=== PATIENT | female | born 1985 | race Caucasian/White ===

== ENCOUNTER → 2018-10-20 | Outpatient (CLI) | payer OTHER ==
[~2018-10-20] MED LIST: FERR325T3 PO; IBUP600T26 PO; IBUP80TA PO; NORCOTAB PO; PERCOCET PO; PRENTAB74 PO; PROBCAP4 PO
[2018-10-20 18:26] LABS: FREE T4 1.06 NG/DL (0.76-1.46); PROLACTIN 5.2 NG/ML; THYROID STIMULATING HORMONE 0.541 uIU/ML (0.358-3.740)
[2018-10-20 18:39] LABS: HEMOGLOBIN 13.5 g/dl (12.0-15.5); MEAN CORPUSCULAR HEMOGLOBIN 28.4 pg (27.0-33.0); MEAN CORPUSCULAR HGB CONC 32.9 g/dl (32.0-36.5); MEAN CORPUSCULAR VOLUME 86.3 fl (80.0-96.0); PLATELET COUNT, AUTOMATED 234 10^3/uL (150-450); RED BLOOD COUNT 4.75 10^6/uL (4.00-5.40); WHITE BLOOD COUNT 9.3 10^3/uL (4.0-10.0)
== END ==
LOC: M SMT 13:03
PROVIDERS: ATTEND Obstetrics & Gynecology
DX: N92.6 Irregular menstruation, unspecified (principal)

== ENCOUNTER → 2018-10-23 | Outpatient (CLI) | payer OTHER ==
--- NOTE | 2018-10-23 11:25 | REP ---
Pelvic sonography: History: Irregular menstruation. Findings: Transabdominal and transvaginal scanning are included. Uterine dimensions are normal at 10.4 x 3.3 x 6.0 cm. Endometrial echo is 1.1 cm thick and centrally placed. No free fluid is seen. Visualized bladder eller are smooth. Normal ovaries are seen bilaterally. The right ovary measures 2.8 x 2.1 x 2.5 cm. Left ovarian dimensions are 2.5 x 1.5 x 1.7 cm. Doppler flow is normal to both ovaries. Resistive indices are 0.54 on the right and 0.56 on the left. Impression: Normal pelvic sonography. Electronically Signed by Bala Rahman MD 10/23/2018 03:41 P
== END ==
LOC: M RAD 08:10
PROVIDERS: ATTEND Obstetrics & Gynecology
DX: N92.6 Irregular menstruation, unspecified (principal)

== ENCOUNTER 2018-11-10 09:00 | Day surgery (SDC) | payer OTHER ==
[~2018-11-10] VITALS: Ht 152.4 cm; Wt 74.8 kg
[~2018-11-10 09:00] MED LIST changes: +CVS1CAP2 PO; +LIDOCAINE 1% MDV 20ML VIAL SQ PRN; +LR 1,000 ML IV ONE; +MICR1TAB18 PO
[2018-11-10 09:38] LABS: URINE PREG TEST NEGATIVE (NEGATIVE)
[2018-11-10 09:41] LABS: HEMATOCRIT 40.1 % (36.0-47.0); HEMOGLOBIN 13.5 g/dl (12.0-15.5); MEAN CORPUSCULAR HEMOGLOBIN 28.7 pg (27.0-33.0); MEAN CORPUSCULAR HGB CONC 33.7 g/dl (32.0-36.5); MEAN CORPUSCULAR VOLUME 85.3 fl (80.0-96.0); PLATELET COUNT, AUTOMATED 217 10^3/uL (150-450); WHITE BLOOD COUNT 6.8 10^3/uL (4.0-10.0)
[2018-11-10] MEDS ORDERED: LIDOCAINE 2% INJ 100 MG/5 ML SDV (FOR ANES.) As Ordered ONE (09:58)
[2018-11-10] MEDS ORDERED: PROPOFOL 200 MG/20 ML VIAL As Ordered ONE (09:58)
[2018-11-10] MEDS ORDERED: dexameTHASONE 4 MG/ML 1ML VIAL (J1100) As Ordered ONE (09:58)
[2018-11-10] MEDS ORDERED: ONDANSETRON 4MG/2ML VIAL (J2405) As Ordered ONE (09:58)
[2018-11-10] MEDS ORDERED: fentaNYL 100 MCG/2 ML INJECTION (J3010) As Ordered ONE (09:59)
[2018-11-10] MEDS ORDERED: MIDAZOLAM INJ 2 MG/2 ML VIAL (J2250) As Ordered ONE (09:59)
[2018-11-10] MEDS ORDERED: IBUP80TA PO (10:43)
[2018-11-10] MEDS ORDERED: ACETAMINOPHEN 1000MG 100ML IV BTL (OFIRMEV) (J0131 PER 10MG) As Ordered ONE (11:12)
[2018-11-10] MEDS ORDERED: KETOROLAC 60 MG/2 ML VIAL (J1885) As Ordered ONE (11:23)
--- NOTE | 2018-11-10 11:44 | RO ---
DATE OF PROCEDURE: 11/10/2018 Roseanna is a 33-year-old female with extensive history of menorrhagia and an enlarged uterus. After counseling in the office a decision was made to proceed with a dilatation and curettage, hysteroscopy. PREOPERATIVE DIAGNOSIS: Enlarged uterus. POSTOPERATIVE DIAGNOSIS: Enlarged uterus. PROCEDURE: 1. Dilatation and curettage. 2. Hysteroscopy. SURGEON: Rashi Rojas DO INSET CUTTER: ANESTHESIA General. COMPLICATIONS: None. ESTIMATED BLOOD LOSS: Less than 20 mL. SPECIMEN SENT TO THE LAB: Endometrial curettings. PROCEDURE: After obtaining informed consent, and visiting with the patient in the preop area, she was then taken to the operating room where general anesthetic was found to be adequate. She was then draped and prepped in usual sterile fashion in dorsal lithotomy position. At this point, a straight cath of the bladder was performed for proximately 150 mL of clear urine. A retained tampon was found in the vagina. This was then removed and the cervix reprepped with Betadine. At this point for the cervix was held in tension with a single-tooth tenaculum. The uterus was sound to approximately 9 cm in size. The cervix was serially dilated. The hysteroscope was inserted and the endometrial cavity was then inspected. Bilateral tubal ostia visualized. No evidence of any polyp or fibroid noted. At this point, the hysteroscope was removed and a sharp curettage of the endometrial lining was done and the tissues were sent to pathology for final diagnosis. Good hemostasis noted. All instruments removed. The patient tolerated procedure well. She was then transferred to recovery room in stable condition.
[2018-11-10] MEDS ORDERED: PERCOCET 5MG/325MG TAB PO PRN ×2 (12:00)
[2018-11-10] MEDS ORDERED: fentaNYL 100 MCG/2 ML INJECTION (J3010) IV PRN (12:00)
[2018-11-10] MEDS ORDERED: LR 1,000 ML IV SCH (12:00)
[2018-11-10] MEDS ORDERED: METOCLOPRAMIDE INJ 10MG/2ML VIAL (J2765) IV PRN (12:00)
[2018-11-10] MEDS ORDERED: ONDANSETRON 4MG/2ML VIAL (J2405) IV PRN (12:00)
[2018-11-10 14:00] VITALS: BP 161/96
[2018-11-10] MEDS ORDERED: IBUPROFEN 800 MG TAB PO SCH (18:00)
== END 2018-11-10 14:00 | disposition home or self-care (01) ==
LOC: M SDC 09:00
PROVIDERS: ATTEND Obstetrics & Gynecology
DX: N92.0 Excessive and frequent menstruation with regular cycle (principal); N85.2 Hypertrophy of uterus
CPT/HCPCS: 36415; 58558; 84703; 85027; 86850; 86900; 86901; 87086; 88305; J0131; J1100; J1885; J2250; J2405; J3010

== ENCOUNTER 2019-01-29 13:13 | Inpatient (IN) | payer OTHER ==
[~2019-01-29] VITALS: Ht 152.4 cm; Wt 74.9 kg
[~2019-01-29 13:13] MED LIST changes: -LIDOCAINE 1% MDV 20ML VIAL SQ PRN; -LR 1,000 ML IV ONE
[2019-01-29] MEDS ORDERED: PROBIOTIC (13:19)
[2019-01-29 13:59] LABS: BASO % 0.6 % (0.0-1.0); EOS # 0.1 10^3/uL (0.0-0.5); EOS % 1.9 % (0.0-3.0); HEMOGLOBIN 13.3 g/dl (12.0-15.5); LYMPH # 1.8 10^3/uL (1.5-5.0); LYMPH % 28.3 % (24.0-44.0); MEAN CORPUSCULAR HEMOGLOBIN 26.8 pg (27.0-33.0); MEAN CORPUSCULAR HGB CONC 33.3 g/dl (32.0-36.5); MEAN CORPUSCULAR VOLUME 80.5 fl (80.0-96.0); MONO # 0.4 10^3/uL (0.0-0.8); MONO % 6.8 % (0.0-5.0); NEUTROPHILS % 62.2 % (36.0-66.0); PLATELET COUNT, AUTOMATED 238 10^3/uL (150-450); RED BLOOD COUNT 4.97 10^6/uL (4.00-5.40); WHITE BLOOD COUNT 6.4 10^3/uL (4.0-10.0)
--- NOTE | 2019-01-29 14:15 | REP ---
CHEST, SINGLE VIEW: There is no evidence of acute infiltrate. No pleural effusion is seen. The heart is normal in size. The mediastinal silhouette is unremarkable. The visualized osseous structures are intact. IMPRESSION: No acute pulmonary disease. Electronically Signed by Catrachito Helms MD 01/29/2019 04:22 P
[2019-01-29 14:21] LABS: BLOOD UREA NITROGEN 7 MG/DL (7-18); CALCIUM LEVEL 9.7 MG/DL (8.5-10.1); CARBON DIOXIDE LEVEL 24 MEQ/L (21-32); CHLORIDE LEVEL 105 MEQ/L (98-107); CK-MB VALUE MASS < 1.0 NG/ML (<3.6); CPK CREATINE PHOSPHOKINASE 219 U/L (26-192); GLOMERULAR FILTRATION RATE > 60.0 (>60); GLUCOSE, FASTING 90 MG/DL (70-100); MB/CK RELATIVE INDEX 0.46 (< OR =4); POTASSIUM SERUM 3.9 MEQ/L (3.5-5.1); SODIUM LEVEL 139 MEQ/L (136-145); TROPONIN I < 0.02 NG/ML (< 0.10)
[2019-01-29] MEDS ORDERED: ISOVUE-370 76% 100ML VIAL (Q9967) As Ordered ONE (15:25)
[2019-01-29 16:53] LABS: ALBUMIN 4.2 GM/DL (3.2-5.2); ALT/SGPT 16 U/L (12-78); BILIRUBIN,DIRECT 0.3 MG/DL (0.0-0.2); BILIRUBIN,TOTAL 1.3 MG/DL (0.2-1.0); TOTAL PROTEIN 7.6 GM/DL (6.4-8.2)
--- NOTE | 2019-01-29 16:57 | REP ---
CT ANGIOGRAM CHEST: TECHNIQUE: Axial contrast enhanced images from the thoracic inlet to the upper abdomen using 100 mL Isovue 370 intravenous contrast material with multiplanar reformations. There is no CT evidence of pulmonary embolism. There is no thoracic aortic aneurysm or dissection. The heart is normal in size. There is no pleural or pericardial effusion. There is no mediastinal, hilar or chest wall lymphadenopathy. Calcified granuloma is seen in the right upper lobe. No infiltrate is seen in either lung. IMPRESSION: No CT evidence of pulmonary embolism or aortic dissection. Electronically Signed by Catrachito Helms MD 01/31/2019 09:30 A
[2019-01-29] MEDS ORDERED: hydrALAZINE INJ 20 MG/ML VIAL IV ONE (17:00)
[2019-01-29] MEDS ORDERED: LABETALOL HCL 100 MG/20 ML VIAL IV STA (17:49)
[2019-01-29 18:34] LABS: CK-MB VALUE MASS < 1.0 NG/ML (<3.6); CPK CREATINE PHOSPHOKINASE 171 U/L (26-192); MB/CK RELATIVE INDEX 0.58 (< OR =4); THYROID STIMULATING HORMONE 0.867 uIU/ML (0.358-3.740); TROPONIN I < 0.02 NG/ML (< 0.10)
[2019-01-29] MEDS ORDERED: LABETALOL 100 MG TAB PO ONE (19:00)
[2019-01-29 19:34] LABS: APPEARANCE, URINE CLEAR (CLEAR); BACTERIA, URINE AUTO NEGATIVE (NEGATIVE); BILIRUBIN, URINE AUTO NEGATIVE (NEGATIVE); BLOOD, URINE BLOOD NEGATIVE (NEGATIVE); COLOR, URINE STRAW (YELLOW); GLUCOSE, URINE (UA) AUTO NEGATIVE (NEGATIVE); KETONE, URINE AUTO NEGATIVE (NEGATIVE); LEUKOCYTE ESTERASE, URINE AUTO NEGATIVE (NEGATIVE); NITRITE, URINE AUTO NEGATIVE (NEGATIVE); PROTEIN, URINE AUTO NEGATIVE (NEGATIVE); RBC, URINE AUTO 0 /HPF (0-3); SPECIFIC GRAVITY URINE AUTO 1.032 (1.002-1.035); SQUAMOUS EPITHELIAL CELL UR AU 1 /HPF (0-6); UROBILINOGEN, URINE AUTO 0.2 mg/dL (0.0-2.0); WBC, URINE AUTO 0 /HPF (0-3)
[2019-01-29] MEDS ORDERED: LOSARTAN 50 MG TAB PO ONE (19:45)
[2019-01-29] MEDS ORDERED: KETOROLAC 30 MG/ML VIAL (J1885) IV ONE (19:45)
[2019-01-29] MEDS ORDERED: CVS1CAP2 PO (22:37)
[2019-01-29 22:47] LABS: NT-PRO BNP 31 PG/ML (<125)
--- NOTE | 2019-01-29 23:11 | HPEPDOC ---
General Date of Admission Jan 29, 2019 at 13:14 Date of Service: Jan 29, 2019 Attending Physician: ESTRELLA PACK DO Chief Complaint The patient is a 33-year-old female admitted with a reason for visit of Hypertensive Urgency. Source: Patient Exam Limitations: No limitations Timing/Duration: Day(s) Severity: Moderate Associated Symptoms: Headaches, Other (hypertensive urgency) History of Present Illness Patient is 33 years old female without significant past medical history presented to the hospital with severe headache and hypertensive urgency. Patient stated that she was found to have elevated blood pressure around 150/90 in October and since that time she monitored daily her blood pressure. Most of the time her systolic blood pressure was around 140-150. Patient does not have a PCP and she didn't take any medications for blood pressure. For past few days patient started to have severe headache, intermittent. Her blood pressure was around 200/110. In Emergency room patient received hydralazine IV, labetalol IV, her blood pressure became around 150/90. Patient denied fever, chills, nausea, vomiting, shortness of breath, diarrhea or dysuria Home Medications Scheduled Lactobacillus Combo No.10 (Probiotic) 1 Each Capsule, 1 CAP PO QHS, (Reported) Allergies Coded Allergies: No Known Allergies (Unverified , 11/10/18) Past Medical History Medical History No significant past medical history Surgical History Dilatation curettage was done in October due to excessive bleeding Family History Father has coronary artery diseases Social History * Smoker: Denies Alcohol: Denies Drugs: denies A-FIB/CHADSVASC A-FIB History Current/History of A-Fib/PAF?: No Current PO Anticoag Therapy: No Review of Systems Constitutional: Denies: Chills, Fever Eyes: Denies: Pain, Vision change ENT: Reports: Head Aches; Denies: Dysphagia Skin: Denies: Rash, Lesions Pulmonary: Denies: Dyspnea, Cough Cardiovascular: Denies: Chest Pain, Orthopnea Gastrointestinal: Denies: Nausea, Vomiting Genitourinary: Denies: Dysuria, Frequency Hematologic: Denies: Bruising, Bleeding Excessively Endocrine: Denies: Polydipsia, Polyphagia Musculoskeletal: Denies: Neck Pain, Back Pain Neurological: Denies: Weakness, Numbness Psych: Reports: Mood Normal Physical Examination General Exam: Positive: Alert, Cooperative Eye Exam: Positive: PERRLA, Conjunctiva & lids normal ENT Exam: Positive: Atraumatic Neck Exam: Positive: Supple; Negative: JVD Chest Exam: Positive: Clear to auscultation Heart Exam: Positive: Rate Normal, Regular Rhythm Telemetry: Positive: No significant arrhythmia Abdomen Exam: Positive: Normal bowel sounds Extremity Exam: Negative: Clubbing Skin Exam: Negative: Nl turgor and temperature Neuro Exam: Positive: Strength at 5/5 X4 ext, Cranial Nerves 3-12 NL Psych Exam: Positive: Mental status NL Vital Signs Vital Signs Date Time Temp Pulse Resp B/P (MAP) Pulse Ox O2 Delivery O2 Flow Rate FiO2 01/29/19 22:15 90 153/104 (120) 97 01/29/19 19:00 18 Room Air 01/29/19 13:13 98.7 Laboratory Data Labs 24H Laboratory Tests 2 01/29/19 13:34: Immature Granulocyte % (Auto) 0.2, White Blood Count 6.4, Red Blood Count 4.97, Hemoglobin 13.3, Hematocrit 40.0, Mean Corpuscular Volume 80.5, Mean Corpuscular Hemoglobin 26.8L, Mean Corpuscular Hemoglobin Concent 33.3, Red Cell Distribution Width 12.6, Platelet Count 238, Neutrophils (%) (Auto) 62.2, Lymphocytes (%) (Auto) 28.3, Monocytes (%) (Auto) 6.8H, Eosinophils (%) (Auto) 1.9, Basophils (%) (Auto) 0.6, Neutrophils # (Auto) 4.0, Lymphocytes # (Auto) 1.8, Monocytes # (Auto) 0.4, Eosinophils # (Auto) 0.1, Basophils # (Auto) 0.0, Nucleated Red Blood Cells % (auto) 0.0, Anion Gap 10, Glomerular Filtration Rate > 60.0, Calcium Level 9.7, Aspartate Amino Transf (AST/SGOT) 17, Alanine Doherty otransferase (ALT/SGPT) 16, Alkaline Phosphatase 76, Total Bilirubin 1.3H, Direct Bilirubin 0.3H, Total Creatine Kinase 219H, Creatine Kinase MB < 1.0, Creatine Kinase MB Relative Index 0.46, Troponin I < 0.02, Total Protein 7.6, Albumin 4.2, Albumin/Globulin Ratio 1.24 01/29/19 14:23: POC Beta HCG, Quantitative < 5.0 01/29/19 17:54: Total Creatine Kinase 171, Creatine Kinase MB < 1.0, Creatine Kinase MB Relative Index 0.58, Troponin I < 0.02, HP-Dgr-N-Type Natriuretic Peptide 31, Thyroid Stimulating Hormone (TSH) 0.867 01/29/19 19:21: Urine Appearance CLEAR, Urine Color STRAW, Urine pH 9.0, Urine Specific [place] 1.032, Urine Protein NEGATIVE, Urine Glucose (UA) NEGATIVE, Urine Ketones NEGATIVE, Urine Urobilinogen 0.2, Urine Bilirubin NEGATIVE, Urine Leukocyte Esterase NEGATIVE, Urine Blood NEGATIVE, Urine Nitrite NEGATIVE, Urine WBC (Auto) 0, Urine RBC (Auto) 0, Urine Hyaline Casts (Auto) 0, Urine Bacteria (Auto) NEGATIVE, Urine Squamous Epithelial Cells 1, Urine Sperm (Auto) 01/29/19 22:56: CBC/BMP Laboratory Tests 01/29/19 13:34 Red Blood Count 4.97, Mean Corpuscular Volume 80.5, Mean Corpuscular Hemoglobin 26.8 L, Mean Corpuscular Hemoglobin Concent 33.3, Red Cell Distribution Width 12.6, Neutrophils (%) (Auto) 62.2, Lymphocytes (%) (Auto) 28.3, Monocytes (%) (Auto) 6.8 H, Eosinophils (%) (Auto) 1.9, Basophils (%) (Auto) 0.6, Neutrophils # (Auto) 4.0, Lymphocytes # (Auto) 1.8, Monocytes # (Auto) 0.4, Eosinophils # (Auto) 0.1, Basophils # (Auto) 0.0 Assessment/Plan Patient is 33 years old female without significant past medical history presented to ED with severe headache and hypertensive urgency. Problems (1) Hypertensive urgency Status: Acute Problem Text: Dr. Hummel talked to Dr. Kahn recommended losartan and chlorthalidone by mouth We will check routine and aldosterone Ultrasound of the kidney, Doppler ultrasound of renal arteries Echo Appreciate/agree with veteran appeals reviewer recommendation We will keep systolic blood pressure in the range 160 for the next 6-8 hours Labetalol when necessary (2) Headache Problem Text: Secondary to hypertensive urgency Tramadol when necessary Plan / VTE VTE Prophylaxis Ordered?: Yes ESTRELLA PACK DO Jan 29, 2019 23:11
[2019-01-29] MEDS ORDERED: LABETALOL HCL 100 MG/20 ML VIAL IV PRN (23:15)
[2019-01-29] MEDS: traMADol 50 MG TAB PO PRN (23:44)
[2019-01-30] VITALS (10 sets, daily range): BP systolic 117–163; BP diastolic 76–107; PULSE 76
[2019-01-30] MEDS ORDERED: MORPHINE 4 MG/ML 1ML VIAL/SYRINGE (J2270) IV ONE (03:00)
--- NOTE | 2019-01-30 04:58 | ECGEPIP ---
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
--- NOTE | 2019-01-30 05:02 | ECGEPIP ---
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
[2019-01-30] MEDS: HEPARIN SOD (PORCINE) 5000 UNITS/ML VIAL SQ SCH ×2 (05:31→17:27)
[2019-01-30 05:41] LABS: BASO # 0.1 10^3/uL (0.0-0.2); EOS # 0.2 10^3/uL (0.0-0.5); HEMATOCRIT 38.6 % (36.0-47.0); HEMOGLOBIN 12.6 g/dl (12.0-15.5); LYMPH # 1.9 10^3/uL (1.5-5.0); LYMPH % 32.1 % (24.0-44.0); MEAN CORPUSCULAR HEMOGLOBIN 27.2 pg (27.0-33.0); MEAN CORPUSCULAR HGB CONC 32.6 g/dl (32.0-36.5); MEAN CORPUSCULAR VOLUME 83.4 fl (80.0-96.0); MONO # 0.6 10^3/uL (0.0-0.8); MONO % 9.1 % (0.0-5.0); NEUTROPHILS # 3.3 10^3/uL (1.5-8.5); NEUTROPHILS % 54.6 % (36.0-66.0); PLATELET COUNT, AUTOMATED 225 10^3/uL (150-450); RED BLOOD COUNT 4.63 10^6/uL (4.00-5.40)
[2019-01-30 06:02] LABS: BLOOD UREA NITROGEN 10 MG/DL (7-18); CARBON DIOXIDE LEVEL 24 MEQ/L (21-32); CHLORIDE LEVEL 108 MEQ/L (98-107); CREATININE FOR GFR 0.98 MG/DL (0.55-1.30); GLOMERULAR FILTRATION RATE > 60.0 (>60); GLUCOSE, FASTING 104 MG/DL (70-100); MAGNESIUM LEVEL 2.1 MG/DL (1.8-2.4); PHOSPHORUS LEVEL 4.9 MG/DL (2.5-4.9); POTASSIUM SERUM 3.4 MEQ/L (3.5-5.1); SODIUM LEVEL 141 MEQ/L (136-145)
[2019-01-30] MEDS ORDERED: POTASSIUM CHLORIDE 10 MEQ SR TABLET PO ONE (07:45)
[2019-01-30] MEDS: CHLORTHALIDONE 12.5MG PER 1/2 TABLET PO SCH (08:18)
[2019-01-30] MEDS: LOSARTAN 50 MG TAB PO SCH (08:18)
[2019-01-30] MEDS: ACETAMINOPHEN TAB 650MG DOSE (2X325MG) PO PRN ×3 (10:11→23:08)
[2019-01-30] MEDS ORDERED: NS 500 ML IV ONE (10:30)
[2019-01-30] MEDS: NS 1,000 ML IV SCH ×2 (10:52)
[2019-01-30] MEDS ORDERED: ISOVUE-370 76% 100ML VIAL (Q9967) As Ordered ONE (11:12)
--- NOTE | 2019-01-30 12:18 | REPVR ---
EXAM: CT Head Without Contrast EXAM DATE/TIME: 01/30/2019 11:38 AM CLINICAL HISTORY: 33 years old, female; Other: Hypertensive emergency; Additional info: R/O bleed TECHNIQUE: Imaging protocol: Computed tomography of the head without contrast. Radiation optimization: All CT scans at this facility use at least one of these dose optimization techniques: automated exposure control; mA and/or kV adjustment per patient size (includes targeted exams where dose is matched to clinical indication); or iterative reconstruction. COMPARISON: No relevant prior studies available. FINDINGS: Brain: Symmetric caliber of the cortical sulci. Normal pitt-white matter differentiation. No acute cortical infarct, mass effect, or intracranial hemorrhage. Dural calcification. Ventricles: Normal configuration of the ventricles. Bones/joints: No acute calvarial pathology. Sinuses: No sinus fluid. Mastoid air cells: No mastoid effusion. Soft tissues: Unremarkable soft tissues. IMPRESSION: No acute intracranial pathology. Electronically signed by: Myles Bull On 01/30/2019 12:17:59 PM
--- NOTE | 2019-01-30 12:36 | REPVR ---
EXAM: CT Angiography Neck With Contrast EXAM DATE/TIME: 01/30/2019 11:38 AM CLINICAL HISTORY: 33 years old, female; Other: Hypertensive emeregency; Patient HX: R/O dissection; Additional info: Assess for carotid/vascular dissection TECHNIQUE: Imaging protocol: Computed tomographic angiography images of the neck with intravenous contrast using CT angiography protocol. 3D rendering: MIP reconstructed images were created and reviewed. Radiation optimization: All CT scans at this facility use at least one of these dose optimization techniques: automated exposure control; mA and/or kV adjustment per patient size (includes targeted exams where dose is matched to clinical indication); or iterative reconstruction. Contrast material: ISOVUE 370; Contrast volume: 75 ml; Contrast route: IV; COMPARISON: No relevant prior studies available. FINDINGS: VASCULATURE: Right common carotid artery: Unremarkable. No stenosis. No dissection or occlusion. Right internal carotid artery: Unremarkable extracranial segment. No stenosis. No dissection or occlusion. Right external carotid artery: Unremarkable. No occlusion or stenosis of the origin. Right vertebral artery: Unremarkable. No stenosis. No dissection or occlusion. Left common carotid artery: There is a bovine aortic arch, with a common origin of the left common carotid and brachiocephalic arteries. Left internal carotid artery: Unremarkable extracranial segment. No stenosis. No dissection or occlusion. Left external carotid artery: Unremarkable. No occlusion or stenosis of the origin. Left vertebral artery: Unremarkable. No stenosis. No dissection or occlusion. NECK: Thyroid: The thyroid gland is normal. Bones/joints: No acute fracture. Soft tissues: Normal. No significant soft tissue swelling. Lymph nodes: There are numerous prominent but non-pathologic lymph nodes in the neck. There are no nodes of pathologic dimensions. Lungs: The visualized portions of the lung apices are normal. Dental: Moderate dental disease is seen. Other findings: There is no evidence of dissection, leak, rupture, or other complications. IMPRESSION: There is no evidence of dissection, leak, rupture, or other complications. COMMENT: Reference per NASCET criteria for degree of stenosis: Mild: less than 50% stenosis. Moderate: 50-69% stenosis. Severe: 70-94% stenosis. Near occlusion: 95-99% stenosis. Electronically signed by: Shawn Green On 01/30/2019 12:36:30 PM
[2019-01-30] MEDS: traMADol 50 MG TAB PO PRN (13:58)
[2019-01-30] MEDS ORDERED: SUMAtriptan SUCCINATE 25 MG TAB PO ONE (19:15)
--- NOTE | 2019-01-30 19:25 | IPNPDOC ---
Date Seen The patient was seen on 01/30/19. Progress Note SUBJECTIVE: Patient continues to complain of headache along with some neck discomfort. Overall reportedly improved from yesterday but not resolved. CT head and neck angio showed no evidence of intracranial hemorrhage nor carotid dissection. Had been on tramadol, tylenol also added, some relief but headache persistent. OBJECTIVE PHYSICAL EXAMINATION: VITAL SIGNS: Please see below. General: mild distress, Alert Eyes: Normal sclera, EOMI, SUSANNE HENT: Atraumatic Cardiovascular: Normal rate, normal rhythm. Pulmonary: Clear to auscultation b/l, no wheezing GI: Soft, nontender, nondistended Skin: Warm and dry Neuro: CN grossly intact. No focal deficits. Strengths equal b/l. Psych: oriented x 3 LABORATORY DATA, IMAGING STUDIES, MICROBIOLOGY: Please see below. DVT prophylaxis ordered?: HSQ ASSESSMENT AND PLAN: 1. Hypertensive urgency - BP improved, c/w current regimen. - Troponins negative. - BP 120-140s systolic currently. - On chlorthalidone 12.5 mg daily and losartan 50 mg daily. - f/u Renal US. f/u Renin aldosterone. 2. Headache - New onset headache. no history of migraine. - Suspected from HTN, or rapid drop of BP from chronic baseline. - Keep BP slightly elevated around 140s now, will not aggressively lower at this time. - Was on tylenol and tramadol without adequate relief. Tramadol d/c and trying a dose of Sumtriptan now. - Suspected possible tension headache given complaints of neck discomfort as well. - CT showed no evidence of intracranial bleed. CTA showed no carotid dissection. DISPOSITION: Home once headache improves/resolves. VS, I&O, 24H, [facility] Vital Signs/I&O Vital Signs Date Time Temp Pulse Resp B/P (MAP) Pulse Ox O2 Delivery O2 Flow Rate FiO2 01/30/19 16:00 97.4 80 18 141/99 (113) 100 01/29/19 19:00 Room Air I&O- Last 24 Hours up to 6 AM 01/30/19 06:00 Intake Total 0 ml Output Total 700 ml Balance -700 ml Laboratory Data 24H LABS Laboratory Tests 2 01/29/19 19:21: Urine Appearance CLEAR, Urine Color STRAW, Urine pH 9.0, Urine Specific [place] 1.032, Urine Protein NEGATIVE, Urine Glucose (UA) NEGATIVE, Urine Ketones NEGATIVE, Urine Urobilinogen 0.2, Urine Bilirubin NEGATIVE, Urine Leukocyte Esterase NEGATIVE, Urine Blood NEGATIVE, Urine Nitrite NEGATIVE, Urine WBC (Auto) 0, Urine RBC (Auto) 0, Urine Hyaline Casts (Auto) 0, Urine Bacteria (Auto) NEGATIVE, Urine Squamous Epithelial Cells 1, Urine Sperm (Auto) 01/29/19 22:56: 01/30/19 04:58: Immature Granulocyte % (Auto) 0.2, White Blood Count 6.0, Red Blood Count 4.63, Hemoglobin 12.6, Hematocrit 38.6, Mean Corpuscular Volume 83.4, Mean Corpuscular Hemoglobin 27.2, Mean Corpuscular Hemoglobin Concent 32.6, Red Cell Distribution Width 12.7, Platelet Count 225, Neutrophils (%) (Auto) 54.6, Lymphocytes (%) (Auto) 32.1, Monocytes (%) (Auto) 9.1H, Eosinophils (%) (Auto) 3.0, Basophils (%) (Auto) 1.0, Neutrophils # (Auto) 3.3, Lymphocytes # (Auto) 1.9, Monocytes # (Auto) 0.6, Eosinophils # (Auto) 0.2, Basophils # (Auto) 0.1, Nucleated Red Blood Cells % (auto) 0.0, Anion Gap 9, Glomerular Filtration Rate > 60.0, Blood Urea Nitrogen 10, Creatinine 0.98, Sodium Level 141, Potassium Level 3.4L, Chloride Level 108H, Carbon Dioxide Level 24, Calcium Level 9.0, Phosphorus Level 4.9, Magnesium Level 2.1 CBC/BMP Laboratory Tests 01/30/19 04:58 Red Blood Count 4.63, Mean Corpuscular Volume 83.4, Mean Corpuscular Hemoglobin 27.2, Mean Corpuscular Hemoglobin Concent 32.6, Red Cell Distribution Width 12.7, Neutrophils (%) (Auto) 54.6, Lymphocytes (%) (Auto) 32.1, Monocytes (%) (Auto) 9.1 H, Eosinophils (%) (Auto) 3.0, Basophils (%) (Auto) 1.0, Neutrophils # (Auto) 3.3, Lymphocytes # (Auto) 1.9, Monocytes # (Auto) 0.6, Eosinophils # (Auto) 0.2, Basophils # (Auto) 0.1, Calcium Level 9.0 ANN PECK MD Jan 30, 2019 19:25
--- NOTE | 2019-01-30 19:41 | REP ---
RENAL ULTRASOUND WITH DUPLEX DOPPLER RENAL ARTERY EVALUATION: Real-time ultrasound evaluation of the kidneys is performed. Right kidney measures 9.8 x 5.6 x 5.4 cm and left kidney 10.4 x 5.6 x 5.3 cm. There is no hydronephrosis bilaterally. There appears to be echogenic renal pyramids suggesting medullary calcinosis. Cyst in the lower left kidney measures 1.8 cm. There are bilateral ureteral jets in the urinary bladder with Doppler color evaluation. Real-time ultrasound evaluation and duplex Doppler interrogation of the renal arteries is performed bilaterally. Peak-systolic velocity of the abdominal aorta at the level of the renal arteries is 110 cm/s. Peak systolic velocity at the origin of the main right renal artery is 101 cm/s, renal to aortic ratio is 0.92, resistive indices are measured in the upper, middle and lower thirds of the right kidney and range between 0.50 and 0.54. Acceleration times range between 0.44 and 0.64. Peak systolic velocity of the main left renal artery is 73 cm/s, renal to aortic ratio 0.66. Resistive indices left kidney range between 0.52 and 0.60. Acceleration times range between 0.054 and 0.064. 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 There is a cyst in the lower pole of the left kidney. There is no definite duplex Doppler sonographic evidence of hemodynamically significant renal artery stenosis. Electronically Signed by Catrachito Helms MD 02/01/2019 04:37 P
[2019-01-30] MEDS ORDERED: LOSARTAN 50 MG TAB PO ONE (22:15)
[2019-01-30 23:24] LABS: CK-MB VALUE MASS < 1.0 NG/ML (<3.6); CPK CREATINE PHOSPHOKINASE 70 U/L (26-192); MB/CK RELATIVE INDEX 1.43 (< OR =4); TROPONIN I < 0.02 NG/ML (< 0.10)
[2019-01-31 04:00] VITALS: BP 139/101
[2019-01-31] MEDS: NS 1,000 ML IV SCH ×3 (04:11→23:06)
[2019-01-31] MEDS: HEPARIN SOD (PORCINE) 5000 UNITS/ML VIAL SQ SCH ×2 (06:07→17:17)
[2019-01-31 08:00] VITALS: BP 148/102
[2019-01-31] MEDS: CHLORTHALIDONE 12.5MG PER 1/2 TABLET PO SCH (08:57)
[2019-01-31] MEDS: LOSARTAN 50 MG TAB PO SCH (08:58)
[2019-01-31] MEDS: ACETAMINOPHEN TAB 650MG DOSE (2X325MG) PO PRN ×3 (08:58→23:36)
[2019-01-31 12:00] VITALS: BP 156/84
[2019-01-31] MEDS: NAPROXEN 250 MG TAB PO SCH ×2 (12:05→20:49)
[2019-01-31] MEDS: PROPRANOLOL 20 MG TAB PO SCH ×2 (12:06→20:49)
--- NOTE | 2019-01-31 13:13 | REPVR ---
PROCEDURE INFORMATION: Exam: CT Cervical Spine Without Contrast EXAM DATE/TIME: 01/31/2019 11:53 AM Exam date and time: 01/31/2019 11:53 AM Clinical history: 33 years old, female; Pain; Cervicalgia; Additional info: Neck pain TECHNIQUE: Imaging protocol: Computed tomography images of the cervical spine without contrast. Radiation optimization: All CT scans at this facility use at least one of these dose optimization techniques: automated exposure control; mA and/or kV adjustment per patient size (includes targeted exams where dose is matched to clinical indication); or iterative reconstruction. COMPARISON: CT ANGIO NECK 01/30/2019 11:21 AM FINDINGS: The examination performed is mildly degraded by motion artifact. Vertebrae: No acute bone injury or malalignment. Marginal osteophytes without disc space narrowing. Discs/Spinal canal/Neural foramina: No focal disc herniation or foraminal stenosis. Note that assessment of disc, spinal cord, and nerve root pathology is limited in the absence of intrathecal contrast. Soft tissues: Unremarkable. Lungs: Unremarkable as visualized. IMPRESSION: No acute abnormality in the cervical spine. Electronically signed by: Myles Bull On 01/31/2019 13:12:58 PM
[2019-01-31 16:00] VITALS: BP 152/94
--- NOTE | 2019-01-31 18:08 | IPNPDOC ---
Date Seen The patient was seen on 01/31/19. Progress Note SUBJECTIVE: Patient stated that she may feel slightly better this morning but headache still persistent. CT neck performed showed no acute pathology. Patient reportedly did not tolerate Sumatriptan last night. NSAID added and Cozaar changed to propranolol. OBJECTIVE PHYSICAL EXAMINATION: VITAL SIGNS: Please see below. General: mild distress, Alert Eyes: Normal sclera, EOMI, SUSANNE HENT: Atraumatic Cardiovascular: Normal rate, normal rhythm. Pulmonary: Clear to auscultation b/l, no wheezing GI: Soft, nontender, nondistended Skin: Warm and dry Neuro: CN grossly intact. No focal deficits. Strengths equal b/l. Psych: oriented x 3 LABORATORY DATA, IMAGING STUDIES, MICROBIOLOGY: Please see below. DVT prophylaxis ordered?: HSQ ASSESSMENT AND PLAN: 1. Hypertensive urgency - BP improved, c/w current regimen. - Troponins negative. - BP 120-140s systolic currently. - On chlorthalidone and propranolol. - Renal US showed no evidence of HD significant stenosis. f/u Renin/aldosterone. 2. Headache - New onset headache. no history of migraine. - Lowering of BP helped but did not resolve headache. - Was on tylenol and tramadol without adequate relief. Trying NSAID now along with propranolol. - Appear to slightly improve today. - Suspected possible tension headache given complaints of neck discomfort as well. - CT showed no evidence of intracranial bleed. CTA showed no carotid dissection and cervical spinal CT showed no notable pathology. - Neurology consulted. F/u recommendations. DISPOSITION: Home once headache improves/resolves. VS, I&O, 24H, [facility] Vital Signs/I&O Vital Signs Date Time Temp Pulse Resp B/P (MAP) Pulse Ox O2 Delivery O2 Flow Rate FiO2 01/31/19 16:00 97.4 68 18 152/94 (113) 100 01/29/19 19:00 Room Air I&O- Last 24 Hours up to 6 AM 01/31/19 06:00 Intake Total 3300 ml Output Total 900 ml Balance 2400 ml Laboratory Data 24H LABS Laboratory Tests 2 01/30/19 21:50: Bedside Glucose (Misc Panel) 88 01/30/19 22:47: Total Creatine Kinase 70, Creatine Kinase MB < 1.0, Creatine Kinase MB Relative Index 1.43, Troponin I < 0.02 ANN PECK MD Jan 31, 2019 18:08
[2019-01-31 20:00] VITALS: BP 150/76
[2019-01-31] MEDS ORDERED: AMITRIPTYLINE 25 MG TAB PO SCH (21:00)
[2019-02-01] VITALS: BP 140/72
[2019-02-01 04:00] VITALS: BP 136/88
[2019-02-01] MEDS: HEPARIN SOD (PORCINE) 5000 UNITS/ML VIAL SQ SCH (05:38)
[2019-02-01 05:49] LABS: HEMATOCRIT 38.3 % (36.0-47.0); HEMOGLOBIN 12.5 g/dl (12.0-15.5); MEAN CORPUSCULAR HEMOGLOBIN 27.2 pg (27.0-33.0); MEAN CORPUSCULAR HGB CONC 32.6 g/dl (32.0-36.5); MEAN CORPUSCULAR VOLUME 83.3 fl (80.0-96.0); PLATELET COUNT, AUTOMATED 205 10^3/uL (150-450); WHITE BLOOD COUNT 5.2 10^3/uL (4.0-10.0)
--- NOTE | 2019-02-01 07:46 | CR ---
DATE OF CONSULTATION: 01/31/2019 REFERRING PHYSICIAN: Dr. Cornelius REASON FOR CONSULTATION: Headaches and hypertensive urgency. HISTORY OF PRESENT ILLNESS: Roseanna Woods is a 33-year-old woman with history of new onset hypertension and headaches. The patient has family history of hypertension. Her blood pressure was running high before she had dilation and curettage (D and C) in summer. Before and after the procedure, her blood pressure was around 167/127. Her blood pressure remained high in November and December. She developed headaches a week ago. A couple of days ago, she felt chest tightness and pain. Headaches have been occipital and they radiate to frontal head region. Yesterday when she came to the emergency department a blood pressure systolic ranged between 177- 201 and diastolic blood pressure rate between 111-131. Her headache was much severe. It was 10/10 in intensity all around her head, throbbing and shooting in character with nausea, dizziness, photophobia. She also reports 7/10, neck pain. She has been started on blood pressure medications. Her blood pressure is better but her headache continues. This morning Dr. Cornelius called me and I recommended to start beta fabricio. She has been started on propranolol 40 mg by mouth twice a day. In addition to chlorthalidone and losartan. Her blood pressure currently is running around 153/95. Her headache is mildly decreased currently. She denies any lower back pains seizures, dysphagia, dysarthria, diplopia, urinary incontinence, falls, loss of consciousness, head injuries, visual changes. PAST MEDICAL HISTORY: D and C due to excessive uterine bleeding. ALLERGIES: None. CURRENT MEDICATIONS: - Chlorthalidone 12.5 mg by mouth daily - losartan 50 mg by mouth daily - propranolol 40 mg by mouth twice a day FAMILY HISTORY: Significant for coronary artery disease. Father and grandparents with hypertension. SOCIAL HISTORY: She lives with her family. She has three children and they are 3,5, and 6 years old. REVIEW OF SYSTEMS: All systems were reviewed and found to be noncontributory except as what is mentioned in the history of present illness. In addition, she complains of insomnia for 3 years. Insomnia has been worse over the last 3 months. She gets 2-3 hours of sleep at night. PHYSICAL EXAMINATION: Temperature 97.4, pulse 68, respiratory 18, blood pressure 152/94, 100% saturation on room air. Heart is regular rate rhythm. Lungs: Clear to auscultation. Abdomen: Soft, nontender, nondistended. No pedal edema. No musculoskeletal abnormalities. No rash. No signs of meningeal irritation. No tremor or dysmetria. The patient is awake, alert, oriented to place, person and time. Normal speech comprehension and repetition. Extraocular muscles are intact. No facial weakness. Tongue and uvula are midline. 5/5 strength in all upper extremities. Deep tendon flexes are 2+ throughout. Normal sensation. Visual mitchell are full to confrontation. No nystagmus. Funduscopic examination is within normal limits. Gait is normal. DIAGNOSTIC STUDIES: CT scan of head, cervical spine and CT angiography of the neck were all unremarkable. CT scan of chest with contrast was unremarkable. CBC and metabolic profile were unremarkable except potassium was 3.4. Capital hCG and capital TSH were unremarkable. ASSESSMENT 1. Headaches induced by hypertensive urgency. 2. Insomnia. 3. Neck pain, likely related to above. 4. Migraines. PLAN 1. Continue propranolol 40 mg by mouth twice a day and its dose can be adjusted pending upon her blood pressure and heart rate. She also taking chlorthalidone and losartan for management of her hypertension. Work up is being done to rule out secondary causes of hypertension. 2. Trial of amitriptyline 25 mg by mouth nightly. 3. Topamax as contingency plan. 4. Follow with our office in 2-3 weeks after hospital discharge. BOLIVAR
[2019-02-01 08:00] VITALS: BP 115/80
[2019-02-01] MEDS: CHLORTHALIDONE 12.5MG PER 1/2 TABLET PO SCH (08:21)
[2019-02-01 08:22] VITALS: BP 115/80
[2019-02-01] MEDS: NAPROXEN 250 MG TAB PO SCH (08:22)
[2019-02-01] MEDS: LOSARTAN 50 MG TAB PO SCH (08:22)
[2019-02-01] MEDS ORDERED: PROPRANOLOL 20 MG TAB PO SCH (09:00)
[2019-02-01 12:00] VITALS: BP 141/88
[2019-02-01] MEDS: NS 1,000 ML IV SCH (12:04)
[2019-02-01] MEDS ORDERED: COZA50TA PO (12:58)
[2019-02-01] MEDS ORDERED: CHLO125TA PO (12:58)
[2019-02-01] MEDS ORDERED: PROP20TA PO (12:58)
[2019-02-01] MEDS ORDERED: AMIT25TA PO (12:58)
--- NOTE | 2019-02-01 13:06 | DS.PDOC ---
Discharge Summary General Date of Admission Jan 31, 2019 at 15:38 Date of Discharge 11/01/18 Discharge Summary PROCEDURES PERFORMED DURING STAY: [None]. ADMITTING DIAGNOSES: 1. Hypertensive urgency 2. Headache DISCHARGE DIAGNOSES: 1. Hypertensive urgency 2. Headache COMPLICATIONS/CHIEF COMPLAINT: Hypertensive Urgency. HISTORY OF PRESENT ILLNESS: "Patient is 33 years old female without significant past medical history presented to the hospital with severe headache and hypertensive urgency. Patient stated that she was found to have elevated blood pressure around 150/90 in October and since that time she monitored daily her blood pressure. Most of the time her systolic blood pressure was around 140-150. Patient does not have a PCP and she didn't take any medications for blood pressure. For past few days patient started to have severe headache, intermittent. Her blood pressure was around 200/110. In Emergency room patient received hydralazine IV, labetalol IV, her blood pressure became around 150/90. Patient denied fever, chills, nausea, vomiting, shortness of breath, diarrhea or dysuria" HOSPITAL COURSE: Patient's BP improved with treatment but headache persisted with slow improvement each day, also complained of neck pain. CT head showed no hemorrhage, CT angio neck showed no evidence of dissection, cervical CT also with no acute changes. Neurology evaluated patient and started on Amitriptyline. Patient still has headache but reported feeling much better and wants to go home. Will discharge patient to follow up with PMD and neurology. BP medications are new to patient, has improved but advised to continue monitoring at home and with PMD, make adjustment as needed. DISCHARGE MEDICATIONS: Please see below. ALLERGIES: Please see below. PHYSICAL EXAMINATION ON DISCHARGE: VITAL SIGNS: Please see below. General: Mild distress, Alert Eyes: Normal sclera, EOMI, SUSANNE HENT: Atraumatic, neck supple, moist mucous membranes Cardiovascular: Normal rate, normal rhythm. Pulmonary: Clear to auscultation b/l, no wheezing GI: Soft, nontender, nondistended Skin: Warm and dry Neuro: CN grossly intact. No focal deficits. Strengths equal b/l. Psych: oriented x 3 LABORATORY DATA: Please see below. IMAGING: CT head- IMPRESSION: No acute intracranial pathology. Neck CTA- IMPRESSION: There is no evidence of dissection, leak, rupture, or other complications. CT cervical spine- IMPRESSION: No acute abnormality in the cervical spine. 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 There is a cyst in the lower pole of the left kidney. There is no definite duplex Doppler sonographic evidence of hemodynamically significant renal artery stenosis. CT angio chest- IMPRESSION: No CT evidence of pulmonary embolism or aortic dissection. ACTIVITY: [As tolerated]. DIET: Regular DISCHARGE PLAN: C/w BP medications and Amitriptyline Establish and f/u PMD, make adjustment to medications as needed Monitor BP as outpatient f/u Neurology in 2-3 weeks DISPOSITION: Home. DISCHARGE INSTRUCTIONS: C/w BP medications and Amitriptyline Establish and f/u PMD, make adjustment to medications as needed Monitor BP as outpatient f/u Neurology in 2-3 weeks ITEMS TO FOLLOWUP ON ON OUTPATIENT: 1.None DISCHARGE CONDITION: [Stable]. TIME SPENT ON DISCHARGE: 34 minutes. Vital Signs/I&Os Vital Signs Date Time Temp Pulse Resp B/P (MAP) Pulse Ox O2 Delivery O2 Flow Rate FiO2 02/01/19 12:00 97.5 73 18 141/88 (105) 98 01/29/19 19:00 Room Air I&O- Last 24 Hours up to 6 AM 02/01/19 06:00 Intake Total 3520 ml Output Total 2050 ml Balance 1470 ml Laboratory Data Labs 24H Laboratory Tests 2 02/01/19 05:25: Nucleated Red Blood Cells % (auto) 0.0 CBC/BMP Laboratory Tests 02/01/19 05:25 Red Blood Count 4.60, Mean Corpuscular Volume 83.3, Mean Corpuscular Hemoglobin 27.2, Mean Corpuscular Hemoglobin Concent 32.6, Red Cell Distribution Width 12.4 Discharge Medications Scheduled Amitriptyline HCl (Amitriptyline HCl) 25 Mg Tablet, 25 MG PO QHS Chlorthalidone (Chlorthalidone) 25 Mg Tablet, 12.5 MG PO DAILY Lactobacillus Combo No.10 (Probiotic) 1 Each Capsule, 1 CAP PO QHS, (Reported) Losartan Potassium (Cozaar) 50 Mg Tablet, 50 MG PO DAILY Propranolol HCl (Propranolol HCl) 20 Mg Tablet, 20 MG PO BID Allergies Coded Allergies: No Known Allergies (Unverified , 11/10/18) ANN PECK MD Feb 01, 2019 13:06
--- NOTE | 2019-02-01 14:40 | ECGEPIP ---
[facility] Test Date: 2019-01-30 Pat Name: TYESHA CUELLAR Department: Room: [place] [address] Gender: Female Steward/Stewardess Banquet: [id number] SCALESB: [id number] Requested By: VIVIANE ALVARADO Order Number: [id number] Reading MD: Robert Hummel Measurements Intervals [place] Rate: 75 P: 38 OR: 152 QRS: 27 QRSD: 102 T: 47 QT: 386 QTc: 434 Interpretive Statements SINUS RHYTHM Electronically Signed on 02-01-2019 14:40:31 EDT by Robert Hummel
[2019-02-04 00:10] LABS: ALDOSTERONE 2.8 ng/dL (0.0-30.0); RENIN LEVEL 0.68 ng/mL/hr (0.167-5.380)
== END 2019-02-01 15:16 | disposition home or self-care (01) | DRG 305 ==
LOC: M ED 13:13 → M ED INP 13:14 → EDBEDREQSVC 22:21 → M PCU 01-30 00:52 → OBSVTOIN 01-31 15:38
PROVIDERS: ADMIT Internal Medicine; ATTEND Student in an Organized Health Care Education/Training Program
DX: I16.0 Hypertensive urgency (principal); I10 Essential (primary) hypertension; G43.909 Migraine, unspecified, not intractable, without status migrainosus; G47.00 Insomnia, unspecified; M54.2 Cervicalgia; Z79.899 Other long term (current) drug therapy

== ENCOUNTER → 2019-03-02 | Outpatient (REF) | payer OTHER ==
[~2019-03-02] MED LIST changes: +AMIT25TA PO; +CHLO125TA PO; +COZA50TA PO; +PROBIOTIC; +PROP20TA PO
[2019-03-02 12:00] LABS: BLOOD UREA NITROGEN 11 MG/DL (7-18); CALCIUM LEVEL 9.3 MG/DL (8.5-10.1); CARBON DIOXIDE LEVEL 28 MEQ/L (21-32); CHLORIDE LEVEL 105 MEQ/L (98-107); CREATININE FOR GFR 0.88 MG/DL (0.55-1.30); GLOMERULAR FILTRATION RATE > 60.0 (>60); GLUCOSE, FASTING 84 MG/DL (70-100); POTASSIUM SERUM 3.9 MEQ/L (3.5-5.1); SODIUM LEVEL 139 MEQ/L (136-145)
== END ==
LOC: M SFHCPLAZ 09:01
PROVIDERS: ATTEND Family Medicine
DX: I10 Essential (primary) hypertension (principal)

== ENCOUNTER → 2019-03-05 | Outpatient (REF) | payer OTHER | LOC: M SFHCPLAZ 11:29 | PROVIDERS: ATTEND Family Medicine | DX: I10 Essential (primary) hypertension (principal) ==

== ENCOUNTER → 2020-02-18 | Outpatient (REF) | payer OTHER ==
[2020-02-18 17:58] LABS: HEMATOCRIT 39.5 % (36.0-47.0); HEMOGLOBIN 13.3 g/dl (12.0-15.5); MEAN CORPUSCULAR HEMOGLOBIN 27.5 pg (27.0-33.0); MEAN CORPUSCULAR HGB CONC 33.7 g/dl (32.0-36.5); MEAN CORPUSCULAR VOLUME 81.6 fl (80.0-96.0); PLATELET COUNT, AUTOMATED 238 10^3/uL (150-450); RED BLOOD COUNT 4.84 10^6/uL (4.00-5.40); WHITE BLOOD COUNT 8.9 10^3/uL (4.0-10.0)
[2020-02-18 19:08] LABS: HEPATITIS C VIRUS ABY INDEX 0.1 INDEX (<0.8); HIV 1&2 SCREEN CENTAUR NEGATIVE (NEGATIVE)
== END ==
LOC: M PLALAB 15:25
PROVIDERS: ATTEND Obstetrics & Gynecology
DX: O34.211 Maternal care for low transverse scar from previous cesarean delivery (principal); Z3A.00 Weeks of gestation of pregnancy not specified

== ENCOUNTER → 2020-02-20 | Outpatient (CLI) | payer OTHER ==
[2020-02-20 12:38] LABS: ALBUMIN 3.4 GM/DL (3.2-5.2); ALT/SGPT 16 U/L (12-78); BILIRUBIN,TOTAL 0.9 MG/DL (0.2-1.0); BLOOD UREA NITROGEN 9 MG/DL (7-18); CALCIUM LEVEL 9.2 MG/DL (8.5-10.1); CARBON DIOXIDE LEVEL 25 MEQ/L (21-32); CHLORIDE LEVEL 108 MEQ/L (98-107); CHOLESTEROL LEVEL 175 MG/DL (<200); CHOLESTEROL RISK RATIO 2.822 (<5); CREATININE FOR GFR 0.68 MG/DL (0.55-1.30); GLOMERULAR FILTRATION RATE > 60.0 (>60); GLUCOSE, FASTING 93 MG/DL (70-100); HDL CHOLESTEROL 62 MG/DL (>40); LDL CHOLESTEROL 90 MG/DL (<100); NON-HDL-C 113 MG/DL; POTASSIUM SERUM 3.9 MEQ/L (3.5-5.1); SODIUM LEVEL 136 MEQ/L (136-145); TRIGLYCERIDES LEVEL 114 MG/DL (<150)
== END ==
LOC: M PLALAB 09:16
PROVIDERS: ATTEND Nurse Practitioner Family
DX: I10 Essential (primary) hypertension (principal)

== ENCOUNTER → 2020-05-01 | Outpatient (CLI) | payer OTHER ==
--- NOTE | 2020-05-01 11:33 | REP ---
INDICATION: ANATOMY. COMPARISON: None. TECHNIQUE: Pens abdominal ultrasound of the gravid uterus. FINDINGS: There is a single intrauterine gestation. position is variable. The placenta is posterior grade 1 maturity. There is no placenta previa. The umbilical cord insertion on the placenta is located centrally on the placenta. The cord insertion is unremarkable. There is a three-vessel cord. The cervix measures 3.9 cm length. heart rate is 150 beats per minute. Gestational age by ultrasound today is 20 weeks 2 days with an EBTTE of 09/16/2020. The LMP is unknown. The amniotic fluid volume subjectively is normal. weight is 363 g, 0 lb-12 oz. This is the 63rd percentile for 20 weeks 2 days. The following anatomic structures are adequately demonstrated and are unremarkable: Cranium, cavum septum pellucidum, falx, intracranial ventricles, choroid plexus, cisterna magna, nuchal fold, facial profile, orbits, upper lip, lungs, cardiac rhythm, cardiac right ventricular outflow tract, diaphragm, stomach, abdominal wall, right and left kidneys, bladder, spine, right and left upper extremities, right left lower extremities. Suboptimally demonstrated because of position or the four-chamber view of the heart in the cardiac left ventricular outflow tract. A follow-up study dedicated to the structures might be considered. The study is technically difficult because of patient body habitus. IMPRESSION: Intrauterine gestation and anatomy as described. <Electronically signed by Catrachito Carrizales > 05/01/20 [id number]
== END ==
LOC: M WHC 07:50
PROVIDERS: ATTEND Obstetrics & Gynecology
DX: O34.211 Maternal care for low transverse scar from previous cesarean delivery (principal); Z3A.20 20 weeks gestation of pregnancy

== ENCOUNTER → 2020-05-26 | Outpatient (REF) | payer OTHER ==
[~2020-05-26] MED LIST changes: -AMIT25TA PO; +AMIT25TA17 PO
== END ==
LOC: M SFHCWAGY 17:00
PROVIDERS: ATTEND Obstetrics & Gynecology
DX: O34.211 Maternal care for low transverse scar from previous cesarean delivery (principal); Z3A.00 Weeks of gestation of pregnancy not specified

== ENCOUNTER → 2020-06-24 | Outpatient (REF) | payer OTHER ==
[2020-06-24 11:04] LABS: HEMATOCRIT 30.2 % (36.0-47.0); HEMOGLOBIN 10.1 g/dl (12.0-15.5); MEAN CORPUSCULAR HEMOGLOBIN 29.4 pg (27.0-33.0); MEAN CORPUSCULAR HGB CONC 33.4 g/dl (32.0-36.5); MEAN CORPUSCULAR VOLUME 87.8 fl (80.0-96.0); PLATELET COUNT, AUTOMATED 176 10^3/uL (150-450); RED BLOOD COUNT 3.44 10^6/uL (4.00-5.40); WHITE BLOOD COUNT 9.8 10^3/uL (4.0-10.0)
== END ==
LOC: M PLALAB 08:04
PROVIDERS: ATTEND Obstetrics & Gynecology
DX: O34.211 Maternal care for low transverse scar from previous cesarean delivery (principal)

== ENCOUNTER → 2020-07-16 | Outpatient (CLI) | payer OTHER ==
--- NOTE | 2020-07-16 14:08 | REP ---
INDICATION: F/U ANATOMY,BPP COMPARISON: 05/01/2020 TECHNIQUE: Transabdominal obstetrical ultrasound with color Doppler evaluation. FINDINGS: Examination demonstrates a single live intrauterine in breech presentation. motion is identified by technologist. Placenta is noted posterior and grade 1 without evidence for placenta previa or abruption. Amniotic fluid volume is normal. Cervix measures 3.5 cm in length and appears closed. CLAYTON: 13.2 cm Biophysical profile score: 8/8 Umbilical artery SD ratio: 2.90 (1.93-4.03). Gestational age by 1st ultrasound 31 weeks 1 day with BETTE 09/16/2020. Gestational age by medical record 30 weeks 4 days with BETTE 09/20/2020. Gestational age by current measurements 31 weeks 4 days with BETTE 09/13/2020. FHR equals 135 beats per minute. Estimated weight 1744 grams (64thpercentile based on age at 30 weeks 4 days). Anatomical assessment demonstrates normal structures including cranium, facial profile, four-chamber heart/left ventricular outflow tract, stomach, kidneys/bladder. IMPRESSION: Single live advanced gestation in breech presentation demonstrating appropriate estimated weight. Visualized anatomical structures are normal. <Electronically signed by Osmin Fonseca > 07/16/20 [id number]
== END ==
LOC: M WHC 12:29
PROVIDERS: ATTEND Obstetrics & Gynecology
DX: O34.211 Maternal care for low transverse scar from previous cesarean delivery (principal); Z3A.31 31 weeks gestation of pregnancy

== ENCOUNTER → 2020-07-29 | Outpatient (CLI) | payer OTHER ==
--- NOTE | 2020-07-29 12:20 | REP ---
INDICATION: PRE EXISTING HYPERTENSION,GROWTH. COMPARISON: 07/16/2020. TECHNIQUE: Multiple ultrasonographic images of the gravid uterus. FINDINGS: There is a single intrauterine gestation in a breech presentation. The placenta is posterior with grade 1 maturity. There is no placenta previa. There is a normal 3 vessel cord. heart rate is 158 beats per minute. Amniotic fluid index is 16.7. Normal is 8.5-24.3. biophysical profile: breathing-2 tone-2 movement-2 AF the-2 Total 8/8. IMPRESSION: biophysical profile is 8/8. Single intrauterine gestation in a breech presentation. <Electronically signed by Catrachito Carrizales > 07/29/20 [id number]
== END ==
LOC: M WHC 06:57
PROVIDERS: ATTEND Obstetrics & Gynecology
DX: O10.012 Pre-existing essential hypertension complicating pregnancy, second trimester (principal); Z3A.00 Weeks of gestation of pregnancy not specified

== ENCOUNTER → 2020-08-12 | Outpatient (CLI) | payer OTHER ==
--- NOTE | 2020-08-12 09:01 | REP ---
INDICATION: HYPERTENSION,BPP COMPARISON: 07/29/2020 TECHNIQUE: Transabdominal obstetrical ultrasound with color Doppler evaluation. FINDINGS: Examination demonstrates a single live intrauterine in cephalic presentation. motion is identified by technologist. Placenta is noted posterior and grade 1 without evidence for placenta previa or abruption. Amniotic fluid volume is normal. Cervix measures 3.9 cm in length and appears closed. CLAYTON: 20.7 cm (8.0-24.8) Biophysical profile score: 8/8 Umbilical artery 1 SD ratio: 3.03 (1.71-3.64) Umbilical artery 2 SD ratio: 2.43. IMPRESSION: Single live intrauterine in cephalic presentation demonstrating normal amniotic fluid index and biophysical profile score. <Electronically signed by Osmin Fonseca > 08/12/20 [id number]
== END ==
LOC: M WHC 07:30
PROVIDERS: ATTEND Advanced Practice Midwife
DX: O10.012 Pre-existing essential hypertension complicating pregnancy, second trimester (principal); Z3A.00 Weeks of gestation of pregnancy not specified

== ENCOUNTER → 2020-08-20 | Outpatient (CLI) | payer OTHER ==
[~2020-08-20] MED LIST changes: +LABE20TAB PO; +PRENTAB53 PO
--- NOTE | 2020-08-21 08:03 | REP ---
INDICATION: PREG, GROWTH COMPARISON: 08/12/2020 TECHNIQUE: Transabdominal obstetrical ultrasound with color Doppler evaluation. FINDINGS: Examination demonstrates a single live intrauterine in [place] breech presentation. motion is identified by technologist. Placenta is noted posterior and grade 1 without evidence for placenta previa or abruption. Amniotic fluid volume is normal. Cervix measures 5.6 cm in length and appears closed.. Gestational age by LMP 35 weeks 4 days with BETTE 09/20/2020. Gestational age by current measurements and 1st ultrasound 36 weeks 1 day with BETTE 09/17/2020. FHR equals 144 beats per minute. Estimated weight 2903 grams (70thpercentile based on age by BETTE). CLAYTON: 25.1 cm (7.8-24.9) Umbilical artery SD ratio: 2.41 (1.66-3.54) IMPRESSION: Single live advanced gestation in foot[place] breech presentation. Estimated weight within normal range. CLAYTON is upper limits of normal range raising the possibility of early polyhydramnios. <Electronically signed by Osmin Fonseca > 08/21/20 0800
== END ==
LOC: M RAD 14:19
PROVIDERS: ATTEND Advanced Practice Midwife
DX: O10.013 Pre-existing essential hypertension complicating pregnancy, third trimester (principal); Z3A.35 35 weeks gestation of pregnancy; O32.8XX0 Maternal care for other malpresentation of fetus, not applicable or unspecified

== ENCOUNTER → 2020-08-22 | Outpatient (REF) | payer OTHER | LOC: M SFHCWAGY 16:46 | PROVIDERS: ATTEND Obstetrics & Gynecology | DX: O34.211 Maternal care for low transverse scar from previous cesarean delivery (principal) ==

== ENCOUNTER → 2020-08-29 | Outpatient (CLI) | payer OTHER | LOC: M LABSMTC 11:48 | PROVIDERS: ATTEND Anesthesiology | DX: Z20.822 Contact with and (suspected) exposure to COVID-19 (principal) ==

== ENCOUNTER → 2020-08-29 | Outpatient (CLI) | payer OTHER | LOC: M LABSMTC 11:44 | PROVIDERS: ATTEND Anesthesiology | DX: Z01.812 Encounter for preprocedural laboratory examination (principal); Z20.822 Contact with and (suspected) exposure to COVID-19 ==

== ENCOUNTER → 2020-08-29 | Outpatient (CLI) | payer OTHER ==
--- NOTE | 2020-08-29 13:19 | REP ---
INDICATION: BPP/HYPERTENSION. COMPARISON: 08/20/2020. TECHNIQUE: Real-time sonographic evaluation of the gravid uterus performed. FINDINGS: Estimated gestational age is36 weeks 6 days, EDC 09/20/2020. Presentation: Cephalic Placenta posterior, grade 1, without evidence of placenta previa. heart rate is recorded at 130 beats per minute. Amniotic fluid is subjectively normal. CLAYTON 16.0, normal range 7.5-24.5. Biophysical profile score 8/8. SD ratio umbilical artery 2.73, normal range 1.60-3.44. RI 0.63, normal range 0.43-0.70. IMPRESSION: Viable single intrauterine gestation as above. <Electronically signed by Catrachito Helms > 08/29/20 [id number]
== END ==
LOC: M WHC 11:02
PROVIDERS: ATTEND Obstetrics & Gynecology
DX: O10.013 Pre-existing essential hypertension complicating pregnancy, third trimester (principal); Z3A.36 36 weeks gestation of pregnancy

== ENCOUNTER → 2023-09-28 | Outpatient (REF) | payer OTHER ==
[~2023-09-28] MED LIST changes: -AMIT25TA17 PO; +AMIT25TA19 PO; -COZA50TA PO; +LOSA-528 PO; -MICR1TAB18 PO; +NORE1TAB94 PO
[2023-09-28 18:22] LABS: ALBUMIN 3.7 G/DL (3.2-5.2); ALKALINE PHOSPHATASE 82 U/L (46-116); ALT/SGPT 19 U/L (7.0-40); AST/SGOT 15 U/L (<34); BILIRUBIN,TOTAL 0.5 MG/DL (0.3-1.2); BLOOD UREA NITROGEN 9 MG/DL (9-23); CALCIUM LEVEL 9.5 MG/DL (8.5-10.1); CARBON DIOXIDE LEVEL 26 MMOL/L (20-31); CHLORIDE LEVEL 107 MMOL/L (98-107); CHOLESTEROL LEVEL 176 MG/DL (<200); CHOLESTEROL RISK RATIO 3.76 (<5); CREATININE FOR GFR 0.77 MG/DL (0.55-1.30); GLOMERULAR FILTRATION RATE > 60.0 (>60); GLUCOSE, FASTING 100 MG/DL (60-100); HDL CHOLESTEROL 46.8 MG/DL (>40); LDL CHOLESTEROL 97.2 MG/DL (<100); NON-HDL-C 129.2 MG/DL; POTASSIUM SERUM 4.7 MMOL/L (3.5-5.1); SODIUM LEVEL 139 MMOL/L (136-145); TOTAL PROTEIN 6.8 G/DL (5.7-8.2); TRIGLYCERIDES LEVEL 160 MG/DL (<150)
[2023-09-28 18:23] LABS: FREE T4 1.06 NG/DL (0.89-1.76)
[2023-09-28 18:24] LABS: THYROID STIMULATING HORMONE 1.102 uIU/ML (0.55-4.78)
[2023-09-28 19:30] LABS: HEMOGLOBIN A1c 5.3 % (4.0-6.0)
== END ==
LOC: M SFHCCLAY 10:14
PROVIDERS: ATTEND Nurse Practitioner Family
DX: I10 Essential (primary) hypertension (principal); F41.8 Other specified anxiety disorders

== ENCOUNTER → 2023-10-27 | Outpatient (CLI) | payer OTHER | LOC: M PLAIMG 14:40 | PROVIDERS: ATTEND Nurse Practitioner Family | DX: I10 Essential (primary) hypertension (principal); I27.20 Pulmonary hypertension, unspecified ==

== ENCOUNTER → 2023-11-09 | Outpatient (CLI) | payer OTHER | LOC: M RAD 08:22 | PROVIDERS: ATTEND Nurse Practitioner Family | DX: I10 Essential (primary) hypertension (principal); N28.1 Cyst of kidney, acquired ==

== ENCOUNTER → 2024-02-15 | Outpatient (CLI) | payer OTHER | LOC: M RAD 14:35 | PROVIDERS: ATTEND Physician Assistant | DX: R93.89 Abnormal findings on diagnostic imaging of other specified body structures (principal); R16.2 Hepatomegaly with splenomegaly, not elsewhere classified; N20.0 Calculus of kidney; N28.1 Cyst of kidney, acquired ==

== ENCOUNTER → 2024-12-19 | Outpatient (REF) | payer OTHER ==
[~2024-12-19] MED LIST changes: +NORE-23 PO; -NORE1TAB94 PO
[2024-12-19 18:05] LABS: BASO # 0.1 10^3/uL (0.0-0.2); BASO % 0.8 % (0.0-1.0); EOS # 0.3 10^3/uL (0.0-0.5); EOS % 3.5 % (0.0-3.0); LYMPH # 2.0 10^3/uL (1.5-5.0); LYMPH % 26.3 % (24.0-44.0); MONO # 0.5 10^3/uL (0.0-0.8); MONO % 7.0 % (2.0-8.0); NEUTROPHILS # 4.6 10^3/uL (1.5-8.5); NEUTROPHILS % 62.1 % (36.0-66.0); PLATELET COUNT, AUTOMATED 243 10^3/uL (150-450)
[2024-12-20 02:21] LABS: IRON (FE) 46.0 UG/DL (50-170); PERCENT SATURATION 14.6 % (13.2-45.0)
== END ==
LOC: M SFHCCLAY 10:59
PROVIDERS: ATTEND Nurse Practitioner Family
DX: N94.6 Dysmenorrhea, unspecified (principal)